=== PATIENT | male | born 1955 | race Caucasian/White ===

== ENCOUNTER 2025-09-13 10:28 | Inpatient (IN) | payer MEDICARE, OTHER ==
[~2025-09-13] VITALS: Ht 185.4 cm; Wt 85.1 kg
[2025-09-13 10:39] VITALS: O2SAT 93
[2025-09-13] MEDS: IV NS 0.9% 500 ML BAG IV ONE (10:54)
[2025-09-13] MEDS ORDERED: LEVO330T6 PO (11:17)
[2025-09-13] MEDS ORDERED: DIVA-76 PO (11:17)
[2025-09-13] MEDS ORDERED: PROM6.256 PO (11:17)
[2025-09-13] MEDS ORDERED: LOSA25TA27 PO (11:17)
[2025-09-13] MEDS ORDERED: POLY17PO4 PO (11:17)
[2025-09-13] MEDS ORDERED: CARB1TAB21 PO (11:17)
[2025-09-13] MEDS ORDERED: OMEG1CAP40 PO (11:17)
[2025-09-13] MEDS ORDERED: ACET-73 PO (11:17)
[2025-09-13] MEDS ORDERED: MIRT-91 PO (11:17)
[2025-09-13] MEDS ORDERED: SENN8.6T19 PO (11:17)
[2025-09-13] MEDS ORDERED: LORA-258 PO (11:17)
[2025-09-13] MEDS ORDERED: MAGN400O6 PO (11:17)
[2025-09-13] MEDS ORDERED: VITA-354 PO (11:17)
[2025-09-13] MEDS ORDERED: PRAV20TA4 PO (11:17)
[2025-09-13 11:18] LABS: PLATELET COUNT (AUTO) 160 K/uL (150-450); RED BLOOD CELL COUNT(AUTO) 4.83 MIL/uL (4.5-6.0); RED CELL DISTRIBUTION WIDTH 14.8 % (11.5-15.0); WHITE BLOOD COUNT (AUTO) 3.2 K/uL (4.3-11.0)
[2025-09-13 11:30] LABS: CALCIUM, SERUM 8.3 mg/dL (8.5-10.1); CREATININE 0.8 mg/dL (0.6-1.3); SODIUM SERUM 137.0 mmol/L (136-145); UREA NITROGEN, BLOOD 18.0 mg/dL (7-18)
[2025-09-13 11:54] LABS: INR 1.05 (0.91-1.10)
[2025-09-13] MEDS: CARBIDOPA/LEVODOPA 25/100 MG 1 UDTAB PO SCH (12:26)
[2025-09-13] MEDS ORDERED: MAGNESIUM HYDROXIDE 30 ML UDC PO PRN ×2 (12:30)
[2025-09-13] MEDS ORDERED: ONDANSETRON HCL/PF 4 MG/2 ML VIAL IVP PRN (12:30)
[2025-09-13] MEDS ORDERED: ACETAMINOPHEN ES 500 MG TABLET PO PRN (12:30)
[2025-09-13] MEDS ORDERED: Z GUARD REMEDY 4 OZ OINT TP PRN (12:30)
[2025-09-13] MEDS ORDERED: ACETAMINOPHEN 325 MG TABLET PO PRN (12:30)
[2025-09-13] MEDS ORDERED: MAG HYDROX/AL HYDROX/SIMETH 30 ML UDC PO PRN (12:30)
[2025-09-13] MEDS ORDERED: LORAZEPAM 0.5 MG TABLET PO PRN (12:30)
[2025-09-13 13:55] LABS: LYMPHOCYTES % (MANUAL) 10 % (16-48); MONOCYTES % (MANUAL) 2 % (0-11.0); MYELOCYTES % 1 % (0-0); NEUTROPHILS % (MANUAL) 87 (42-76)
[2025-09-13 13:56] LABS: PLATELET ESTIMATE ADEQUATE
[2025-09-13 20:00] VITALS: BP 141/80; TEMP 98.6; O2SAT 93
[2025-09-13] MEDS: SENNOSIDES 8.6 MG TABLET PO SCH (21:02)
[2025-09-13] MEDS: DIVALPROEX SODIUM 250 MG TABLET.DR PO SCH (21:03)
[2025-09-13] MEDS: MIRTAZAPINE 15 MG TABLET PO SCH (21:03)
[2025-09-14 07:35] LABS: PLATELET COUNT (AUTO) 143 K/uL (150-450); RED BLOOD CELL COUNT(AUTO) 4.94 MIL/uL (4.5-6.0); RED CELL DISTRIBUTION WIDTH 14.6 % (11.5-15.0); WHITE BLOOD COUNT (AUTO) 3.4 K/uL (4.3-11.0)
[2025-09-14 08:00] VITALS: BP 143/92; TEMP 98.2; O2SAT 91
[2025-09-14 08:05] LABS: CALCIUM, SERUM 8.8 mg/dL (8.5-10.1); CREATININE 0.9 mg/dL (0.6-1.3); PHOSPHORUS 3.3 mg/dL (2.5-4.9); SODIUM SERUM 141.0 mmol/L (136-145); UREA NITROGEN, BLOOD 13.0 mg/dL (7-18)
[2025-09-14] MEDS: POLYETHYLENE GLYCOL 3350 17 GM POWD.PACK PO SCH (09:18)
[2025-09-14] MEDS: ATORVASTATIN 10 MG TABLET PO SCH (09:19)
[2025-09-14] MEDS: LOSARTAN POTASSIUM 25 MG TABLET PO SCH (09:19)
[2025-09-14 16:00] VITALS: BP 129/88; TEMP 97.8; O2SAT 92
[2025-09-14 20:00] VITALS: BP 123/90; TEMP 97.7; O2SAT 94
[2025-09-15 08:00] VITALS: BP 112/68; TEMP 97.9; O2SAT 92
[2025-09-15 16:00] VITALS: BP 116/80; TEMP 98.4; O2SAT 94
[2025-09-16 07:30] VITALS: BP 113/75; TEMP 97.7; O2SAT 92
[2025-09-16 16:00] VITALS: BP 113/71; TEMP 97.8; O2SAT 94
== END 2025-09-16 19:55 | DRG 640 ==
LOC: ER 10:30 → MED 11:53
PROVIDERS: ADMIT Internal Medicine; ATTEND Internal Medicine
DX: E86.0 Dehydration (principal); G93.41 Metabolic encephalopathy; G23.1 Progressive supranuclear ophthalmoplegia [Steele-Richardson-Olszewski]; I10 Essential (primary) hypertension
CPT/HCPCS: 36415; 71045-TC; 80048-TC; 83735-TC; 84100-TC; 85025-TC; 85027-TC; 85730-TC; 87081-TC; 92526; 92611; 97110-TC; 97116-TC; 97530-TC; 97535-TC; G0378; J7040

== ENCOUNTER 2025-11-08 19:31 | Emergency (ER) | payer MEDICARE, OTHER ==
[~2025-11-08] VITALS: Ht 175.3 cm; Wt 81.6 kg
[~2025-11-08 19:31] MED LIST: ACET-73 PO; CARB1TAB21 PO; DIVA-76 PO; LEVO330T6 PO; LORA-258 PO; LOSA25TA27 PO; MAGN400O6 PO; MIRT-91 PO; OMEG1CAP40 PO; POLY17PO4 PO; PRAV20TA4 PO; PROM6.256 PO; SENN8.6T19 PO; VITA-354 PO
[2025-11-08 20:26] LABS: PLATELET COUNT (AUTO) 170 K/uL (150-450); RED BLOOD CELL COUNT(AUTO) 4.76 MIL/uL (4.5-6.0); RED CELL DISTRIBUTION WIDTH 15.0 % (11.5-15.0); WHITE BLOOD COUNT (AUTO) 7.5 K/uL (4.3-11.0)
[2025-11-08 20:40] LABS: APPEARANCE,URINE CLEAR (CLEAR); BLOOD, URINE 3+ Ery/uL (NEGATIVE); LEUKOCYTE ESTERASE ,URINE TRACE (NEGATIVE); NITRITE, URINE POSITIVE (NEGATIVE); UGLUCOSE NEGATIVE (NEGATIVE)
[2025-11-08 20:40] LABS: CALCIUM, SERUM 8.9 mg/dL (8.5-10.1); CREATININE 0.6 mg/dL (0.6-1.3); SODIUM SERUM 140.0 mmol/L (136-145); UREA NITROGEN, BLOOD 19.0 mg/dL (7-18)
[2025-11-08 20:45] LABS: ASPARTATE AMINOTRANSFERASE 10.0 U/L (15-37); TOTAL PROTEIN, SERUM 6.7 g/dL (6.4-8.2)
[2025-11-08 20:55] LABS: ADD URINE CULTURE YES; HYALINE CASTS, URINE Few /LPF (None Seen); SQUAMOUS EPITHELIAL CELL,UR Rare /HPF (None Seen); URINE AMORPHOUS PHOSPHATES Moderate /HPF (None Seen)
[2025-11-08] MEDS ORDERED: CIPR-262 PO (20:58)
[2025-11-08] MEDS: CIPROFLOXACIN HCL 500 MG TABLET PO ONE (21:02)
[2025-11-08 22:04] VITALS: BP 125/81; TEMP 98; O2SAT 97
== END 2025-11-08 22:05 ==
LOC: ER 19:37
DX: N39.0 Urinary tract infection, site not specified (principal); I11.9 Hypertensive heart disease without heart failure; G23.1 Progressive supranuclear ophthalmoplegia [Steele-Richardson-Olszewski]; N40.0 Benign prostatic hyperplasia without lower urinary tract symptoms; Z79.899 Other long term (current) drug therapy
CPT/HCPCS: 36415; 80048-TC; 80076-TC; 81001; 85025-TC; 87086-TC